=== PATIENT | female | born 1975 | race African-American/Black ===

== ENCOUNTER 2023-11-10 17:07 | Emergency (ER) | payer SELFPAY ==
[~2023-11-10] VITALS: Ht 160 cm; Wt 65.0 kg
[2023-11-10 17:12] VITALS: O2SAT 100
[2023-11-10 17:27] VITALS: BP 98/60; PULSE 72; RESP 16; TEMP 98; O2SAT 100
[2023-11-10 19:29] LABS: CLARITY URINE CLEAR (CLEAR); COLOR URINE YELLOW (YELLOW); GLUCOSE URINE NEGATIVE (NEGATIVE); KETONES URINE TRACE (NEGATIVE); LEUKOCYTE ESTERASE URINE NEGATIVE (NEGATIVE); NITRITE URINE NEGATIVE (NEGATIVE); OCCULT BLOOD URINE TRACE (NEGATIVE); PH URINE 5.5 (4.5-8.0); PROTEIN URINE NEGATIVE (NEGATIVE); SPECIFIC GRAVITY URINE 1.031 (1.005-1.030)
[2023-11-10 19:46] LABS: BACTERIA URINE NONE SEEN; RBC URINE 0-2 /hpf (0-2); SQUAMOUS EPITHELIAL CELL URINE 1+ /lpf (RARE/1+); WBC URINE NONE SEEN /hpf (0-2)
[2023-11-10] MEDS ORDERED: DOXY100C5 MT (19:50)
[2023-11-10] MEDS: CEFTRIAXONE SODIUM 500MG VIAL IM ONE (20:00)
== END 2023-11-10 20:00 | disposition home or self-care (01) ==
LOC: ER 17:07
DX: N93.9 Abnormal uterine and vaginal bleeding, unspecified (principal); Z11.3 Encounter for screening for infections with a predominantly sexual mode of transmission; Z98.890 Other specified postprocedural states
CPT/HCPCS: 81003; 81025; 87210; 96372; 99283; J0696; Z7610 ×2